=== PATIENT | female | born 1995 | race Two or more races ===

== ENCOUNTER 2022-05-30 17:28 | Emergency (ER) | payer OTHER ==
[~2022-05-30] VITALS: Ht 154.9 cm; Wt 55.3 kg
[2022-05-30] MEDS ORDERED: PRILOSEC OTC20 MG PO (17:53)
[2022-05-30] MEDS ORDERED: PEPCID AC10 MG (17:53)
[2022-05-30] MEDS ORDERED: ONDANSETRON ODT8 MG PO (20:25)
== END 2022-05-30 20:58 | disposition home or self-care (01) ==
LOC: ER 17:28
DX: O21.0 Mild hyperemesis gravidarum (principal); Z3A.01 Less than 8 weeks gestation of pregnancy